=== PATIENT | male | born 1965 | race Two or more races ===

== ENCOUNTER 2021-11-07 14:05 | Emergency (ER) | payer OTHER ==
[~2021-11-07] VITALS: Ht 165.1 cm; Wt 61.2 kg
[2021-11-07 15:15] VITALS: BP 145/82
[2021-11-07] MEDS ORDERED: IBUPROFEN 800 MG TAB PO ONE (15:15)
[2021-11-07] MEDS ORDERED: IBUP800T27 PO (15:18)
== END 2021-11-07 15:21 | disposition home or self-care (01) ==
LOC: ER 14:05
DX: S62.622D Displaced fracture of middle phalanx of right middle finger, subsequent encounter for fracture with routine healing (principal); X58.XXXD Exposure to other specified factors, subsequent encounter
CPT/HCPCS: 29130; 73140

== ENCOUNTER 2022-01-15 09:55 | Emergency (ER) | payer MEDICAID, OTHER ==
[~2022-01-15] VITALS: Ht 170.2 cm; Wt 70.3 kg
[~2022-01-15 09:55] MED LIST: IBUP800T27 PO
[2022-01-15] MEDS ORDERED: FERROUS SULFATE 325mg EC TAB PO ONE (10:15)
[2022-01-15] MEDS ORDERED: THIAMINE 100mg/ml INJ (200mg/2ml VIAL) IV ONE (10:15)
[2022-01-15] MEDS ORDERED: SODIUM CHLORIDE 0.9% 1,000 ML IV ONE ×3 (10:15)
[2022-01-15 10:27] LABS: Red Blood Cells 3.13 10^6/uL (4.5-5.90); White Blood Cell 4.5 10^3/uL (4.4-10.8)
[2022-01-15 10:28] LABS: Hematocrit 22.9 % (41.0-53.0); Hemoglobin 7.3 g/dL (13.5-17.5); Mean Corpuscular Hemoglobin 23.4 pg (28.0-32.0); Mean Corpuscular Volume 73.2 fL (80.0-100.0); Red Cell Distribution Width 18.4 % (11.8-14.3)
[2022-01-15 10:41] LABS: INR 1.26 (0.9-1.15)
[2022-01-15 10:46] LABS: Alanine Aminotransferase 18 U/L (16-61); Albumin 3.5 g/dL (3.4-5.0); Anion Gap 8 (5-15); Blood Alcohol < 3.0 mg/dL (0-5); Blood Urea Nitrogen 10 mg/dL (7-18); Calcium 8.8 mg/dL (8.5-10.1); Carbon Dioxide 23 mmol/L (21-32); Chloride 107 mmol/L (98-107); Glucose 112 mg/dL (74-106); Magnesium 1.7 mg/dL (1.6-2.6); Potassium 3.6 mmol/L (3.5-5.1); Sodium 138 mmol/L (136-145)
[2022-01-15 10:50] LABS: Alkaline Phosphatase 175 U/L (45-117); Aspartate Aminotransferase 31 U/L (15-37); BUN/Creatinine Ratio 9.3; Bilirubin, Total 1.5 mg/dL (0.2-1.0); GFR African American 93 mL/min; GFR Non-African American 77 mL/min; Total Protein 8.1 g/dL (6.4-8.2)
[2022-01-15] MEDS ORDERED: FERR-20 PO (12:34)
[2022-01-15 12:51] VITALS: BP 122/57
== END 2022-01-15 12:56 | disposition home or self-care (01) ==
LOC: ER 09:55
DX: D64.9 Anemia, unspecified (principal); R04.0 Epistaxis; F10.10 Alcohol abuse, uncomplicated; I10 Essential (primary) hypertension; Y90.8 Blood alcohol level of 240 mg/100 ml or more
CPT/HCPCS: 36415; 80053; 80320; 83735; 85025; 85610; 85730; 86850; 86900; 86901; 96361; 96374; 99285; J3411; J7030

== ENCOUNTER 2023-06-03 09:30 | Inpatient (IN) | payer OTHER ==
[~2023-06-03] VITALS: Ht 165.1 cm; Wt 63.3 kg
[~2023-06-03 09:30] MED LIST changes: +FERR325T24 PO; +IBUP-1456 PO; -IBUP800T27 PO
[2023-06-03 10:25] LABS: Basophils # (auto) 0 10 ^3/uL (0-0.2); Basophils % (auto) 0.6 % (0.0-2.0); Eosinophils # (auto) 0.4 10 ^3/uL (0-0.8); Eosinophils % (auto) 8.3 % (0.0-7.0); Hematocrit 29.7 % (41.0-53.0); Lymphocytes # (auto) 1.1 10 ^3/uL (0.4-5.4); Lymphocytes % (auto) 20.3 % (10.0-50.0); Mean Corpuscular Hemoglobin 33.9 pg (28.0-32.0); Mean Corpuscular Hgb Conc. 33.5 g/dL (32.0-36.0); Mean Corpuscular Volume 101.1 fL (80.0-100.0); Monocytes # (auto) 0.4 10 ^3/uL (0-1.3); Monocytes % (auto) 7.4 % (0.0-12.0); Neutrophils # (auto) 3.3 10 ^3/uL (1.6-8.6); Neutrophils % (auto) 63.4 % (37.0-80.0); Nucleated Red Blood Cells % 0.3 %; Red Blood Cells 2.94 10^6/uL (4.5-5.90); Red Cell Distribution Width 16.5 % (11.8-14.3); White Blood Cell 5.3 10^3/uL (4.4-10.8)
[2023-06-03] MEDS ORDERED: SODIUM CHLORIDE 0.9% 1,000 ML IV ONE ×2 (10:30)
[2023-06-03] MEDS ORDERED: THIAMINE 100mg/ml INJ (200mg/2ml VIAL) IV ONE (10:30)
[2023-06-03 11:12] LABS: Alanine Aminotransferase 43 U/L (7-40); Alkaline Phosphatase 475 U/L (46-116); Anion Gap 8.1 (5-15); Aspartate Aminotransferase 111 U/L (13-40); Calcium 7.8 mg/dL (8.7-10.4); Carbon Dioxide 23.9 mmol/L (20-30); Chloride 101 mmol/L (98-107); Glucose 152 mg/dL (74-106); Lipase 51 U/L (12-53); Potassium 3.4 mmol/L (3.5-5.1); Sodium 133 mmol/L (136-145)
[2023-06-03 11:13] LABS: Total Protein 6.4 g/dL (5.7-8.2)
[2023-06-03 12:26] LABS: BUN/Creatinine Ratio 9.1 (10.0-20.0); Blood Urea Nitrogen 8 mg/dL (9-23)
[2023-06-03] MEDS ORDERED: ONDANSETRON HCL 4 MG/2 ML VIAL IV PRN (13:45)
[2023-06-03] MEDS ORDERED: DOCUSATE SOD 100 MG CAP PO PRN (13:45)
[2023-06-03] MEDS ORDERED: MORPHINE SULFATE INJ 2 MG/ml SYRG IV PRN (13:45)
[2023-06-03] MEDS ORDERED: LORazepam 2MG/ML-1ML VIAL IV PRN (13:45)
[2023-06-03 14:38] LABS: INR 1.73 (0.9-1.15); Prothrombin Time 17.5 sec (9.3-11.8)
[2023-06-03 15:01] LABS: Urine Bacteria NONE SEEN /hpf (None Seen); Urine Blood Negative /uL (Negative); Urine Clarity Clear (Clear); Urine Color Yellow (Yellow); Urine Protein, UAD TRACE (Negative); Urine Specific Gravity 1.014 (1.001-1.035); Urine WBC 1 /hpf (0 - 3)
[2023-06-03 15:50] VITALS: PULSE 80; RESP 16; O2SAT 98
[2023-06-03] MEDS: FUROSEMIDE 20 MG/2 ML VIAL IV SCH (18:39)
[2023-06-03 20:33] VITALS: PULSE 100; RESP 20; O2SAT 96
[2023-06-04 05:10] LABS: Basophils # (auto) 0 10 ^3/uL (0-0.2); Eosinophils # (auto) 0.4 10 ^3/uL (0-0.8); Hematocrit 25.8 % (41.0-53.0); Hemoglobin 8.9 g/dL (13.5-17.5); Monocytes # (auto) 0.3 10 ^3/uL (0-1.3); Red Blood Cells 2.57 10^6/uL (4.5-5.90)
[2023-06-04 05:13] LABS: Basophils % (auto) 0.8 % (0.0-2.0); Eosinophils % (auto) 11.4 % (0.0-7.0); Lymphocytes # (auto) 0.9 10 ^3/uL (0.4-5.4); Mean Corpuscular Hemoglobin 34.8 pg (28.0-32.0); Mean Corpuscular Hgb Conc. 34.6 g/dL (32.0-36.0); Mean Corpuscular Volume 100.4 fL (80.0-100.0); Monocytes % (auto) 8.9 % (0.0-12.0); Neutrophils % (auto) 54.9 % (37.0-80.0); Nucleated Red Blood Cells % 0.1 %; Red Cell Distribution Width 16.5 % (11.8-14.3); White Blood Cell 3.7 10^3/uL (4.4-10.8)
[2023-06-04 05:30] LABS: Alanine Aminotransferase 33 U/L (7-40); Albumin 2.6 g/dL (3.2-4.8); Alkaline Phosphatase 376 U/L (46-116); Anion Gap 7.5 (5-15); Aspartate Aminotransferase 84 U/L (13-40); BUN/Creatinine Ratio 6.7 (10.0-20.0); Bilirubin, Total 4.1 mg/dL (0.2-1.0); Blood Urea Nitrogen 5 mg/dL (9-23); Calcium 7.3 mg/dL (8.5-10.1); Carbon Dioxide 24.5 mmol/L (20-30); Chloride 104 mmol/L (98-107); Glucose 97 mg/dL (74-106); Sodium 136 mmol/L (136-145); Total Protein 5.6 g/dL (5.7-8.2)
[2023-06-04 06:21] LABS: Potassium 2.8 mmol/L (3.5-5.1)
[2023-06-04] MEDS ORDERED: POTASSIUM CHL 20 Meq TABLET PO ONE (06:45)
[2023-06-04] MEDS: FUROSEMIDE 20 MG/2 ML VIAL IV SCH ×2 (06:49→17:51)
[2023-06-04 07:56] LABS: Platelet Estimate Decreased
[2023-06-04 07:57] LABS: Macrocytosis Slight
[2023-06-04 09:00] VITALS: PULSE 85; RESP 14; O2SAT 97
[2023-06-04 10:12] VITALS: BP 121/75; PULSE 88; O2SAT 100
[2023-06-04] MEDS: POTASSIUM CHL 20MEQ/100ML 100 ML IV SCH ×2 (10:21→13:54)
[2023-06-04] MEDS: PANTOPRAZOLE 40 MG/10 ML VIAL INJ IV SCH (10:21)
[2023-06-04] MEDS ORDERED: FOLIC ACID 1 MG, MULTIPLE VITAMIN 10 ML, MAGNESIUM SULF SDV 50% 8 MEQ, THIAMINE INJ 100... INJ ONE ×5 (10:30)
[2023-06-04] MEDS ORDERED: FOLIC ACID 1 MG, MULTIPLE VITAMIN 10 ML, MAGNESIUM SULF SDV 50% 8 MEQ, THIAMINE INJ 100... INJ SCH ×5 (12:00)
[2023-06-04 12:30] VITALS: BP 117/65; PULSE 82; RESP 18; TEMP 98.3; O2SAT 100
[2023-06-04] MEDS ORDERED: LACTULOSE 20Gm/30ML SOLN PO PRN (13:15)
[2023-06-04 13:31] LABS: Chloride 102 mmol/L (98-107); Sodium 135 mmol/L (136-145)
[2023-06-04 13:32] LABS: Anion Gap 7.4 (5-15); Carbon Dioxide 25.6 mmol/L (20-30)
[2023-06-04 13:33] LABS: Calcium 7.5 mg/dL (8.5-10.1)
[2023-06-04 13:37] LABS: Glucose 116 mg/dL (74-106)
[2023-06-04 13:38] LABS: BUN/Creatinine Ratio 9.3 (10.0-20.0); Blood Urea Nitrogen 7 mg/dL (9-23)
[2023-06-04 13:45] LABS: Potassium 2.8 mmol/L (3.5-5.1)
[2023-06-04] MEDS ORDERED: POTASSIUM CHL 20MEQ/100ML 100 ML IV SCH (14:00)
[2023-06-04 17:01] VITALS: BP 121/85; PULSE 89; RESP 17; TEMP 99.3; O2SAT 98
[2023-06-04] MEDS ORDERED: POTASSIUM EFFERVESENT TAB 25 MEQ PO ONE (17:15)
[2023-06-04 19:27] LABS: Alanine Aminotransferase 39 U/L (7-40); Alkaline Phosphatase 435 U/L (46-116); Anion Gap 7.7 (5-15); Aspartate Aminotransferase 94 U/L (13-40); BUN/Creatinine Ratio 7.1 (10.0-20.0); Bilirubin, Total 4.4 mg/dL (0.2-1.0); Blood Urea Nitrogen 6 mg/dL (9-23); Calcium 7.7 mg/dL (8.5-10.1); Carbon Dioxide 25.3 mmol/L (20-30); Chloride 103 mmol/L (98-107); Glucose 99 mg/dL (74-106); Potassium 3.2 mmol/L (3.5-5.1); Sodium 136 mmol/L (136-145); Total Protein 6.6 g/dL (5.7-8.2)
[2023-06-04 20:00] VITALS: PULSE 100; RESP 18; O2SAT 0
[2023-06-04 22:00] VITALS: BP 110/67; PULSE 101; RESP 18; TEMP 98.3; O2SAT 98
[2023-06-05 05:00] VITALS: BP 103/64; PULSE 90; RESP 18; TEMP 98.4; O2SAT 98
[2023-06-05] MEDS: FUROSEMIDE 20 MG/2 ML VIAL IV SCH (05:27)
[2023-06-05 06:52] LABS: Basophils # (auto) 0 10 ^3/uL (0-0.2); Eosinophils # (auto) 0.5 10 ^3/uL (0-0.8); Hemoglobin 9.6 g/dL (13.5-17.5); Lymphocytes # (auto) 1.5 10 ^3/uL (0.4-5.4); Mean Corpuscular Volume 101.8 fL (80.0-100.0); Monocytes # (auto) 0.4 10 ^3/uL (0-1.3); Neutrophils # (auto) 2.7 10 ^3/uL (1.6-8.6); Red Cell Distribution Width 16.6 % (11.8-14.3); White Blood Cell 5.1 10^3/uL (4.4-10.8)
[2023-06-05 06:56] LABS: Basophils % (auto) 0.6 % (0.0-2.0); Eosinophils % (auto) 9.6 % (0.0-7.0); Hematocrit 27.5 % (41.0-53.0); Lymphocytes % (auto) 29.9 % (10.0-50.0); Mean Corpuscular Hemoglobin 35.6 pg (28.0-32.0); Monocytes % (auto) 7.5 % (0.0-12.0); Neutrophils % (auto) 52.4 % (37.0-80.0); Nucleated Red Blood Cells % 0.4 %
[2023-06-05 07:03] LABS: Alanine Aminotransferase 31 U/L (7-40); Albumin 2.8 g/dL (3.2-4.8); Alkaline Phosphatase 398 U/L (46-116); Anion Gap 8.5 (5-15); Aspartate Aminotransferase 77 U/L (13-40); BUN/Creatinine Ratio 6.7 (10.0-20.0); Blood Urea Nitrogen 6 mg/dL (9-23); Calcium 7.6 mg/dL (8.7-10.4); Carbon Dioxide 25.5 mmol/L (20-30); Chloride 102 mmol/L (98-107); Glucose 110 mg/dL (74-106); Potassium 3.2 mmol/L (3.5-5.1); Sodium 136 mmol/L (136-145)
[2023-06-05 07:04] LABS: Bilirubin, Total 4.3 mg/dL (0.2-1.0); Total Protein 6.1 g/dL (5.7-8.2)
[2023-06-05 07:30] VITALS: BP 103/64; TEMP 36.9
[2023-06-05 08:00] VITALS: PULSE 91; RESP 17; O2SAT 99
[2023-06-05 09:00] VITALS: BP 109/65; PULSE 91; RESP 17; TEMP 98.6; O2SAT 99
[2023-06-05] MEDS: PANTOPRAZOLE 40 MG/10 ML VIAL INJ IV SCH (09:03)
[2023-06-05] MEDS ORDERED: SPIRONOLACTONE 25 MG TAB PO SCH (10:00)
[2023-06-05] MEDS ORDERED: LACT10SO3 PO (11:25)
[2023-06-05] MEDS ORDERED: FURO1TAB33 PO (11:25)
[2023-06-05] MEDS ORDERED: SPIR25TA PO (11:25)
[2023-06-05] MEDS ORDERED: POTASSIUM CHL 20 Meq TABLET PO ONE (11:45)
[2023-06-05] MEDS ORDERED: FOLIC ACID 1 MG, MULTIPLE VITAMIN 10 ML, MAGNESIUM SULF SDV 50% 8 MEQ, THIAMINE INJ 100... INJ SCH ×5 (12:00)
[2023-06-05 13:00] VITALS: BP 135/63; PULSE 91; RESP 17; TEMP 97.7; O2SAT 98
[2023-06-05 13:26] VITALS: BP 103/64; TEMP 37
[2023-06-07 10:58] LABS: Hepatitis B Surface Antibody Positive (Negative)
[2023-06-07 11:04] LABS: Hepatitis B Surface Antigen Negative (Negative)
[2023-06-07 11:10] LABS: Hepatitis B Surface Antigen Negative (Negative)
[2023-06-07 11:24] LABS: Hepatitis A Ab IgM Negative
[2023-06-07 11:25] LABS: Hepatitis B Core IgM Negative; Hepatitis C Antibody Negative (Negative)
[2023-06-07 13:10] LABS: Hepatitis A Total Antibody Positive (Negative); Hepatitis C Antibody Negative (Negative)
[2023-06-10 15:32] LABS: Hepatitis B Core Total AB Negative (Negative)
== END 2023-06-05 15:00 | disposition home or self-care (01) | DRG 280 ==
LOC: ER 09:30 → OVERFLOW 13:51 → WEST WING 06-04 10:01
PROVIDERS: ADMIT Internal Medicine Pulmonary Disease; ATTEND Internal Medicine
DX: K70.31 Alcoholic cirrhosis of liver with ascites (principal); D69.6 Thrombocytopenia, unspecified; E72.20 Disorder of urea cycle metabolism, unspecified; D63.8 Anemia in other chronic diseases classified elsewhere; F10.10 Alcohol abuse, uncomplicated; I10 Essential (primary) hypertension; R16.1 Splenomegaly, not elsewhere classified
CPT/HCPCS: 36415; 74176; 76705; 80048; 80053; 80074; 80320; 81001; 82140; 82607; 83690; 83735; 84425; 84484; 85025; 85610; 86704; 86706; 86708; 86803; 87340; 96361; 96374; C9113; G0378; J3480

== ENCOUNTER 2023-07-26 10:58 | Inpatient (IN) | payer OTHER ==
[~2023-07-26] VITALS: Ht 165.1 cm; Wt 64.7 kg
[~2023-07-26 10:58] MED LIST changes: +FURO1TAB33 PO; +LACT10SO3 PO; +SPIR25TA PO
[2023-07-26 11:44] LABS: Red Cell Distribution Width 17.5 % (11.8-14.3); White Blood Cell 3.4 10^3/uL (4.4-10.8)
[2023-07-26 11:45] LABS: Hematocrit 23.8 % (41.0-53.0); Hemoglobin 8.1 g/dL (13.5-17.5); Mean Corpuscular Hemoglobin 34.2 pg (28.0-32.0); Mean Corpuscular Hgb Conc. 33.9 g/dL (32.0-36.0); Mean Corpuscular Volume 100.9 fL (80.0-100.0); Red Blood Cells 2.36 10^6/uL (4.5-5.90)
[2023-07-26 12:08] LABS: Alanine Aminotransferase 45 U/L (7-40); Albumin 2.8 g/dL (3.2-4.8); Alkaline Phosphatase 247 U/L (46-116); Anion Gap 7 (5-15); Aspartate Aminotransferase 79 U/L (13-40); BUN/Creatinine Ratio 12.4 (10.0-20.0); Blood Urea Nitrogen 11 mg/dL (9-23); Carbon Dioxide 21 mmol/L (20-30); Chloride 107 mmol/L (98-107); Glucose 126 mg/dL (74-106); Potassium 3.4 mmol/L (3.5-5.1); Sodium 135 mmol/L (136-145)
[2023-07-26 12:09] LABS: Bilirubin, Total 1.7 mg/dL (0.2-1.0); Total Protein 5.7 g/dL (5.7-8.2)
[2023-07-26 12:19] LABS: Band Neutrophils % (manual) 0; Basophils % (manual) 0 (0.0-2.0); Blast Cells 0; Metamyelocytes % 0; Myelocytes % 0; Promyelocytes % 0; Reactive Lymphocytes 0
[2023-07-26 15:15] LABS: Eosinophils % (manual) 23 (0-7); Lymphocytes % (manual) 35 (10.0-50.0); Monocytes % (manual) 6 (0-12); Platelet Estimate Decreased
[2023-07-26 15:49] LABS: Urine Bacteria NONE SEEN /hpf (None Seen); Urine Blood Negative /uL (Negative); Urine Clarity Clear (Clear); Urine Color Yellow (Yellow); Urine Protein, UAD Negative (Negative); Urine Specific Gravity 1.021 (1.001-1.035); Urine Urobilinogen >12.0 mg/dL (Negative); Urine WBC 1 /hpf (0 - 3); Urine pH 6.5 (5.0-8.0)
[2023-07-26] MEDS ORDERED: ONDANSETRON HCL 4 MG/2 ML VIAL IV PRN (20:30)
[2023-07-26] MEDS ORDERED: TEMAZEPAM 15 MG CAP PO PRN (20:30)
[2023-07-26 22:03] LABS: INR 1.43 (0.9-1.15); Partial Thromboplastin Time 34.2 SEC (24.5-34.5); Prothrombin Time 14.7 sec (9.3-11.8)
[2023-07-26 23:45] VITALS: BP 140/73; PULSE 74; RESP 18; TEMP 97.7; O2SAT 100
[2023-07-27 05:00] VITALS: BP 101/59; PULSE 78; RESP 18; TEMP 97.8; O2SAT 100
[2023-07-27 05:46] LABS: Hemoglobin 8.1 g/dL (13.5-17.5); White Blood Cell 3.1 10^3/uL (4.4-10.8)
[2023-07-27 05:52] LABS: Hematocrit 23.4 % (41.0-53.0); Mean Corpuscular Hemoglobin 34.6 pg (28.0-32.0); Mean Corpuscular Hgb Conc. 34.6 g/dL (32.0-36.0); Mean Corpuscular Volume 99.8 fL (80.0-100.0); Red Blood Cells 2.34 10^6/uL (4.5-5.90); Red Cell Distribution Width 17.4 % (11.8-14.3)
[2023-07-27 06:07] LABS: Alanine Aminotransferase 45 U/L (7-40); Alkaline Phosphatase 171 U/L (46-116); Anion Gap 7 (5-15); BUN/Creatinine Ratio 12.4 (10.0-20.0); Blood Urea Nitrogen 12 mg/dL (9-23); Calcium 8.2 mg/dL (8.7-10.4); Carbon Dioxide 22 mmol/L (20-30); Chloride 109 mmol/L (98-107); Glucose 106 mg/dL (74-106); Potassium 3.3 mmol/L (3.5-5.1); Sodium 138 mmol/L (136-145)
[2023-07-27 06:08] LABS: Albumin 2.6 g/dL (3.2-4.8); Aspartate Aminotransferase 76 U/L (13-40); Bilirubin, Total 1.8 mg/dL (0.2-1.0); Total Protein 5.4 g/dL (5.7-8.2)
[2023-07-27 06:45] LABS: Band Neutrophils % (manual) 0; Basophils % (manual) 0 (0.0-2.0); Blast Cells 0; Metamyelocytes % 0; Myelocytes % 0; Promyelocytes % 0; Reactive Lymphocytes 0
[2023-07-27] MEDS: FERROUS SULFATE 325mg EC TAB PO SCH ×2 (08:00→18:37)
[2023-07-27 08:32] LABS: Eosinophils % (manual) 20 (0-7); Lymphocytes % (manual) 23 (10.0-50.0); Monocytes % (manual) 6 (0-12); Platelet Estimate Decreased
[2023-07-27 09:00] VITALS: BP 104/59; PULSE 77; RESP 20; TEMP 98; O2SAT 98
[2023-07-27] MEDS ORDERED: LACTULOSE 20Gm/30ML SOLN PO SCH (10:00)
[2023-07-27] MEDS: SPIRONOLACTONE 25 MG TAB PO SCH (10:16)
[2023-07-27] MEDS: PANTOPRAZOLE 40 MG TAB PO SCH (10:16)
[2023-07-27] MEDS: FUROSEMIDE 20 MG TAB PO SCH (10:17)
[2023-07-27 13:00] VITALS: BP 101/59; PULSE 79; RESP 20; TEMP 98.3; O2SAT 98
[2023-07-27] MEDS: LACTULOSE 20Gm/30ML SOLN PO SCH ×3 (15:25→22:05)
[2023-07-27 17:12] VITALS: BP 100/64; PULSE 82; RESP 20; TEMP 98; O2SAT 99
[2023-07-27 22:00] VITALS: BP 100/63; PULSE 78; RESP 18; TEMP 98.6; O2SAT 100
[2023-07-28 04:52] VITALS: BP 103/61; PULSE 80; RESP 20; TEMP 98.3; O2SAT 99
[2023-07-28] MEDS: LACTULOSE 20Gm/30ML SOLN PO SCH ×2 (06:26→13:13)
[2023-07-28] MEDS: FERROUS SULFATE 325mg EC TAB PO SCH (06:26)
[2023-07-28 09:00] VITALS: BP 96/55; PULSE 57; RESP 17; TEMP 97.9; O2SAT 98
[2023-07-28] MEDS ORDERED: LACT10PA2 PO (09:14)
[2023-07-28] MEDS: FUROSEMIDE 20 MG TAB PO SCH (09:27)
[2023-07-28] MEDS: PANTOPRAZOLE 40 MG TAB PO SCH (09:28)
[2023-07-28] MEDS: SPIRONOLACTONE 25 MG TAB PO SCH (09:28)
== END 2023-07-28 14:15 | disposition home or self-care (01) | DRG 280 ==
LOC: ER 10:58 → OVERFLOW 20:23 → CENTRAL 23:38
PROVIDERS: ADMIT Nurse Practitioner; ATTEND Family Medicine
DX: K70.31 Alcoholic cirrhosis of liver with ascites (principal); D61.818 Other pancytopenia; E72.20 Disorder of urea cycle metabolism, unspecified; K76.82 Hepatic encephalopathy; F10.10 Alcohol abuse, uncomplicated; I10 Essential (primary) hypertension; R16.1 Splenomegaly, not elsewhere classified; R74.01 Elevation of levels of liver transaminase levels; Z91.148 Patient's other noncompliance with medication regimen for other reason
CPT/HCPCS: 36415; 76705; 80053; 81001; 82140; 85007; 85027; 85610; 85730; 87081; 93005; G0378

== ENCOUNTER 2024-01-16 15:18 | Inpatient (IN) | payer OTHER ==
[~2024-01-16] VITALS: Ht 165.1 cm; Wt 68.6 kg
[~2024-01-16 15:18] MED LIST changes: +LACT10PA2 PO
[2024-01-16 16:50] LABS: Hematocrit 20.9 % (41.0-53.0); Mean Corpuscular Hgb Conc. 33.4 g/dL (32.0-36.0); Mean Corpuscular Volume 98.7 fL (80.0-100.0); Red Blood Cells 2.11 10^6/uL (4.5-5.90); White Blood Cell 4.7 10^3/uL (4.4-10.8)
[2024-01-16 16:53] LABS: Basophils % (manual) 0 (0.0-2.0); Blast Cells 0; Metamyelocytes % 0; Myelocytes % 0; Promyelocytes % 0; Reactive Lymphocytes 0
[2024-01-16 17:01] LABS: Alanine Aminotransferase 64 U/L (7-40); Albumin 3.2 g/dL (3.2-4.8); Alkaline Phosphatase 230 U/L (46-116); Anion Gap 6 (5-15); Aspartate Aminotransferase 89 U/L (13-40); BUN/Creatinine Ratio 15.9 (10.0-20.0); Bilirubin, Total 1.4 mg/dL (0.2-1.0); Blood Alcohol < 3.0 mg/dL (<10); Blood Urea Nitrogen 18 mg/dL (9-23); Calcium 8.4 mg/dL (8.5-10.1); Carbon Dioxide 21 mmol/L (20-30); Chloride 113 mmol/L (98-107); Glucose 120 mg/dL (74-106); Potassium 4.2 mmol/L (3.5-5.1); Sodium 140 mmol/L (136-145); Total Protein 5.7 g/dL (5.7-8.2)
[2024-01-16 17:27] LABS: Anisocytosis Slight; Band Neutrophils % (manual) 1; Eosinophils % (manual) 28 (0-7); Lymphocytes % (manual) 4 (10.0-50.0); Macrocytosis Slight; Monocytes % (manual) 14 (0-12)
[2024-01-16 17:28] LABS: Platelet Estimate Decreased
[2024-01-16 17:58] VITALS: PULSE 74; RESP 12; O2SAT 99
[2024-01-16 18:21] LABS: Lipase 69 U/L (12-53)
[2024-01-16 18:37] LABS: Blood Alcohol < 3.0 mg/dL (<10)
[2024-01-16 19:25] VITALS: PULSE 74; RESP 20; O2SAT 99
[2024-01-16 20:09] LABS: Urine Bacteria None Seen /hpf (None Seen)
[2024-01-16] MEDS: LACTULOSE 20Gm/30ML SOLN ONE (20:12)
[2024-01-16 20:19] LABS: Urine Blood Negative /uL (Negative); Urine Clarity Clear (Clear); Urine Color Light-Yellow (Yellow); Urine Protein, UAD Negative (Negative); Urine Specific Gravity 1.012 (1.001-1.035); Urine Urobilinogen 2 mg/dL (Negative); Urine WBC <1 /hpf (0 - 3)
[2024-01-16] MEDS: LACTULOSE 20Gm/30ML SOLN PO ONE (20:23)
[2024-01-16 20:26] LABS: Amphetamine Screen, Urine Neg (NEGATIVE); Barbiturate Scree,Urine Neg (NEGATIVE); Benzodiazephine Screen, Urine Neg (NEGATIVE); Cannabinoid Screen, Urine Neg (NEGATIVE); Cocaine Screen, Urine Neg (NEGATIVE); Opiate Scree,Urine Neg (NEGATIVE); Phencyclidine Screen, Urine Neg (NEGATIVE)
[2024-01-16] MEDS: GABAPENTIN 300 MG CAP ONE (21:15)
[2024-01-16] MEDS: PROPRANOLOL HCL 20 MG TAB ONE (21:15)
[2024-01-16] MEDS: PROPRANOLOL HCL 20 MG TAB PO SCH (21:19)
[2024-01-16] MEDS: GABAPENTIN 300 MG CAP PO SCH (21:20)
[2024-01-17] VITALS (8 sets, daily range): BP systolic 100–113; BP diastolic 41–69; PULSE 64–77; RESP 16–20; TEMP 36.8; O2SAT 96–100
[2024-01-17 05:59] LABS: Hematocrit 19.1 % (41.0-53.0); Mean Corpuscular Hemoglobin 33.2 pg (28.0-32.0); Mean Corpuscular Hgb Conc. 33.2 g/dL (32.0-36.0); Red Blood Cells 1.91 10^6/uL (4.5-5.90); White Blood Cell 3.2 10^3/uL (4.4-10.8)
[2024-01-17 06:01] LABS: Mean Corpuscular Volume 100.2 fL (80.0-100.0); Red Cell Distribution Width 18.2 % (11.8-14.3)
[2024-01-17 06:12] LABS: Hemoglobin 6.3 g/dL (13.5-17.5)
[2024-01-17 06:14] LABS: Basophils % (manual) 0 (0.0-2.0); Blast Cells 0; Metamyelocytes % 0; Myelocytes % 0; Promyelocytes % 0; Reactive Lymphocytes 0
[2024-01-17 06:28] LABS: Alanine Aminotransferase 53 U/L (7-40); Albumin 2.9 g/dL (3.2-4.8); Alkaline Phosphatase 167 U/L (46-116); Anion Gap 8 (5-15); Aspartate Aminotransferase 84 U/L (13-40); BUN/Creatinine Ratio 15.4 (10.0-20.0); Bilirubin, Total 1.4 mg/dL (0.2-1.0); Blood Urea Nitrogen 16 mg/dL (9-23); Calcium 8.8 mg/dL (8.5-10.1); Carbon Dioxide 20 mmol/L (20-30); Chloride 113 mmol/L (98-107); Glucose 99 mg/dL (74-106); Potassium 4.1 mmol/L (3.5-5.1); Sodium 141 mmol/L (136-145); Total Protein 5.1 g/dL (5.7-8.2)
[2024-01-17 07:43] LABS: Band Neutrophils % (manual) 2; Eosinophils % (manual) 20 (0-7); Lymphocytes % (manual) 25 (10.0-50.0); Monocytes % (manual) 6 (0-12)
[2024-01-17 07:44] LABS: Platelet Estimate Adequate
[2024-01-17] MEDS: FUROSEMIDE 20 MG TAB PO SCH (10:00)
[2024-01-17] MEDS: SPIRONOLACTONE 25 MG TAB PO SCH (10:00)
[2024-01-17] MEDS: LACTULOSE 20Gm/30ML SOLN PO SCH (11:09)
[2024-01-17] MEDS: ONDANSETRON HCL 4 MG/2 ML VIAL IV PRN (11:09)
[2024-01-17] MEDS: GABAPENTIN 300 MG CAP ONE (11:18)
[2024-01-17] MEDS ORDERED: MULT-1018 PO (13:43)
[2024-01-17] MEDS ORDERED: SPIR25TA8 PO (13:43)
[2024-01-17] MEDS ORDERED: FAMO-12 PO (13:43)
[2024-01-17] MEDS ORDERED: FERR325T24 PO (13:43)
[2024-01-17] MEDS ORDERED: FURO20TA3 PO (13:43)
[2024-01-17] MEDS ORDERED: GABA-1250 PO (13:43)
[2024-01-17] MEDS ORDERED: PROP1TAB53 PO (13:43)
[2024-01-17] MEDS ORDERED: FAMO40TA7 PO (14:02)
[2024-01-17] MEDS: PANTOPRAZOLE 40 MG/10 ML VIAL INJ IV ONE (17:00)
[2024-01-17] MEDS: PANTOPRAZOLE 40 MG/10 ML VIAL INJ IV SCH (21:48)
[2024-01-18] VITALS (8 sets, daily range): BP systolic 1–113; BP diastolic 54–69; PULSE 65–80; RESP 16–20; TEMP 96.8–98.7; O2SAT 96–100
[2024-01-18 07:06] LABS: Chloride 115 mmol/L (98-107); Potassium 4.5 mmol/L (3.5-5.1); Sodium 138 mmol/L (136-145)
[2024-01-18 07:07] LABS: Anion Gap 4 (5-15); Carbon Dioxide 19 mmol/L (20-30)
[2024-01-18 07:08] LABS: Calcium 8.4 mg/dL (8.5-10.1)
[2024-01-18 07:12] LABS: Glucose 108 mg/dL (74-106)
[2024-01-18 07:13] LABS: BUN/Creatinine Ratio 11.4 (10.0-20.0); Blood Urea Nitrogen 14 mg/dL (9-23)
[2024-01-18 07:18] LABS: Hemoglobin 7.4 g/dL (13.5-17.5); Mean Corpuscular Hemoglobin 32.9 pg (28.0-32.0); Mean Corpuscular Volume 98.7 fL (80.0-100.0); Red Cell Distribution Width 19.7 % (11.8-14.3); White Blood Cell 3.7 10^3/uL (4.4-10.8)
[2024-01-18 07:21] LABS: Hematocrit 22.1 % (41.0-53.0); Mean Corpuscular Hgb Conc. 33.4 g/dL (32.0-36.0); Red Blood Cells 2.24 10^6/uL (4.5-5.90)
[2024-01-18 07:24] LABS: Basophils % (manual) 0 (0.0-2.0); Blast Cells 0; Metamyelocytes % 0; Myelocytes % 0; Promyelocytes % 0; Reactive Lymphocytes 0
[2024-01-18 07:43] LABS: Band Neutrophils % (manual) 1; Lymphocytes % (manual) 16 (10.0-50.0); Monocytes % (manual) 7 (0-12)
[2024-01-18 07:44] LABS: Eosinophils % (manual) 28 (0-7)
[2024-01-18 07:45] LABS: Platelet Estimate Decreased
[2024-01-18 07:46] LABS: RBC Morphology Normal
[2024-01-19] VITALS (9 sets, daily range): BP systolic 104–120; BP diastolic 54–83; PULSE 63–78; RESP 12–18; TEMP 97.3–98.5; O2SAT 95–100
[2024-01-19 06:35] LABS: Basophils # (auto) 0 10 ^3/uL (0-0.2); Basophils % (auto) 0.3 % (0.0-2.0); Eosinophils # (auto) 0.6 10 ^3/uL (0-0.8); Hemoglobin 7.3 g/dL (13.5-17.5); Mean Corpuscular Hgb Conc. 33.1 g/dL (32.0-36.0); Monocytes # (auto) 0.3 10 ^3/uL (0-1.3); Neutrophils # (auto) 1.5 10 ^3/uL (1.6-8.6); Red Cell Distribution Width 19.2 % (11.8-14.3); White Blood Cell 3.2 10^3/uL (4.4-10.8)
[2024-01-19 06:37] LABS: Hematocrit 22.1 % (41.0-53.0); Lymphocytes # (auto) 0.8 10 ^3/uL (0.4-5.4); Lymphocytes % (auto) 23.6 % (10.0-50.0); Mean Corpuscular Hemoglobin 32.5 pg (28.0-32.0); Mean Corpuscular Volume 98.3 fL (80.0-100.0); Monocytes % (auto) 9.4 % (0.0-12.0); Neutrophils % (auto) 46.4 % (37.0-80.0); Red Blood Cells 2.24 10^6/uL (4.5-5.90)
[2024-01-19 06:44] LABS: Anion Gap 6 (5-15); Carbon Dioxide 19 mmol/L (20-30); Chloride 113 mmol/L (98-107); Potassium 4.1 mmol/L (3.5-5.1); Sodium 138 mmol/L (136-145)
[2024-01-19 06:45] LABS: INR 1.37 (0.9-1.15); Prothrombin Time 14.1 sec (9.3-11.8)
[2024-01-19 06:46] LABS: Calcium 8.4 mg/dL (8.5-10.1)
[2024-01-19 06:50] LABS: BUN/Creatinine Ratio 10.6 (10.0-20.0); Blood Urea Nitrogen 12 mg/dL (9-23); Glucose 111 mg/dL (74-106)
[2024-01-19 07:07] LABS: Eosinophils % (auto) 20.3 % (0.0-7.0)
[2024-01-19] MEDS: LACTULOSE 20Gm/30ML SOLN PO SCH ×2 (08:00→10:40)
[2024-01-19] MEDS ORDERED: MIDAZOLAM HCL 2MG/2ML 2ml VIAL (1mg/ml) ONE (09:28)
[2024-01-19] MEDS ORDERED: KETAMINE 50mg/ML 1ml syringe ONE (09:28)
[2024-01-19] MEDS ORDERED: ONDANSETRON HCL 4 MG/2 ML VIAL ONE (09:43)
[2024-01-19] MEDS ORDERED: ONDANSETRON HCL 4 MG/2 ML VIAL IV ONE (10:00)
[2024-01-19] MEDS: SUCRALFATE 1 GM/10 ML ORAL SUSP PO SCH (10:40)
[2024-01-19] MEDS ORDERED: LACTULOSE 20Gm/30ML SOLN PO SCH (14:00)
[2024-01-20 01:00] VITALS: BP 113/62; PULSE 69; RESP 17; TEMP 98.1; O2SAT 100
[2024-01-20 05:00] VITALS: BP 98/55; PULSE 72; RESP 17; TEMP 97.9; O2SAT 98
[2024-01-20 07:03] LABS: Hemoglobin 7.9 g/dL (13.5-17.5); Red Cell Distribution Width 18.7 % (11.8-14.3); White Blood Cell 3.3 10^3/uL (4.4-10.8)
[2024-01-20 07:05] LABS: Mean Corpuscular Hemoglobin 32.3 pg (28.0-32.0); Mean Corpuscular Hgb Conc. 33.1 g/dL (32.0-36.0); Mean Corpuscular Volume 97.3 fL (80.0-100.0); Red Blood Cells 2.46 10^6/uL (4.5-5.90)
[2024-01-20 07:08] LABS: Calcium 8.8 mg/dL (8.7-10.4); Chloride 110 mmol/L (98-107); Potassium 4.1 mmol/L (3.5-5.1); Sodium 137 mmol/L (136-145)
[2024-01-20 07:09] LABS: Anion Gap 9 (5-15); Carbon Dioxide 18 mmol/L (20-30)
[2024-01-20 07:14] LABS: BUN/Creatinine Ratio 12.4 (10.0-20.0); Blood Urea Nitrogen 13 mg/dL (9-23); Glucose 98 mg/dL (74-106)
[2024-01-20 07:19] LABS: Band Neutrophils % (manual) 0; Basophils % (manual) 0 (0.0-2.0); Blast Cells 0; Metamyelocytes % 0; Myelocytes % 0; Promyelocytes % 0; Reactive Lymphocytes 0
[2024-01-20 08:00] VITALS: PULSE 63
[2024-01-20 08:10] LABS: Eosinophils % (manual) 16 (0-7); Lymphocytes % (manual) 23 (10.0-50.0); Monocytes % (manual) 6 (0-12); Platelet Estimate Decreased
[2024-01-20 09:00] VITALS: BP 102/48; PULSE 71; RESP 14; TEMP 98.2; O2SAT 97
[2024-01-20 09:13] LABS: Hepatitis B Surface Antigen Negative (Negative)
[2024-01-20 09:35] LABS: Hepatitis C Antibody Negative (Negative)
[2024-01-20] MEDS ORDERED: PANT40TA2 PO (11:55)
[2024-01-20 12:49] VITALS: BP 102/48; PULSE 71
== END 2024-01-20 13:45 | disposition home or self-care (01) ==
LOC: ER 15:18 → OVERFLOW 21:04 → CENTRAL 01-17 13:45 → TELE-CENTR 01-17 14:54
PROVIDERS: ADMIT Nurse Practitioner; ATTEND Internal Medicine Pulmonary Disease
PROC: 30233N1 Transfusion of Nonautologous Red Blood Cells into Peripheral Vein, Percutaneous Approach (ICD-10-PCS; principal; 2024-01-17)
PROC: 0DB98ZX Excision of Duodenum, Via Natural or Artificial Opening Endoscopic, Diagnostic (ICD-10-PCS; 2024-01-19)
PROC: 0DB68ZX Excision of Stomach, Via Natural or Artificial Opening Endoscopic, Diagnostic (ICD-10-PCS; 2024-01-19)
DX: K76.82 Hepatic encephalopathy (principal); D61.818 Other pancytopenia; G93.41 Metabolic encephalopathy; E72.20 Disorder of urea cycle metabolism, unspecified; I85.00 Esophageal varices without bleeding; D62 Acute posthemorrhagic anemia; K74.60 Unspecified cirrhosis of liver; K29.70 Gastritis, unspecified, without bleeding; K25.9 Gastric ulcer, unspecified as acute or chronic, without hemorrhage or perforation; F10.10 Alcohol abuse, uncomplicated; I10 Essential (primary) hypertension; K44.9 Diaphragmatic hernia without obstruction or gangrene; Z82.49 Family history of ischemic heart disease and other diseases of the circulatory system; Y90.9 Presence of alcohol in blood, level not specified; Z68.25 Body mass index [BMI] 25.0-25.9, adult
CPT/HCPCS: 36415; 70450; 71045; 74176; 80048; 80053; 80307; 80320; 81001; 82140; 82962; 83605; 83690; 83880; 84484; 85007; 85025; 85027; 85610; 86803; 86850; 86900; 86901; 86920; 87040; 87340; 93005; 99291; C9113; G0378; J2250; J2405

== ENCOUNTER 2024-02-18 16:54 | Inpatient (IN) | payer OTHER ==
[~2024-02-18] VITALS: Ht 165.1 cm; Wt 68.0 kg
[~2024-02-18 16:54] MED LIST changes: +FAMO40TA7 PO; -FURO1TAB33 PO; +FURO20TA3 PO; +GABA-1250 PO; -IBUP-1456 PO; -LACT10PA2 PO; -LACT10SO3 PO; +MULT-1018 PO; +PANT40TA2 PO; +PROP1TAB53 PO; -SPIR25TA PO; +SPIR25TA8 PO
[2024-02-18 18:50] VITALS: PULSE 73; RESP 11; O2SAT 99
[2024-02-18 19:18] LABS: Basophils # (auto) 0 10 ^3/uL (0-0.2); Eosinophils # (auto) 0.5 10 ^3/uL (0-0.8); Hemoglobin 7.7 g/dL (13.5-17.5); Lymphocytes # (auto) 1.3 10 ^3/uL (0.4-5.4); White Blood Cell 4.9 10^3/uL (4.4-10.8)
[2024-02-18 19:20] LABS: Basophils % (auto) 0.4 % (0.0-2.0); Eosinophils % (auto) 9.3 % (0.0-7.0); Hematocrit 23.3 % (41.0-53.0); Mean Corpuscular Hemoglobin 32.1 pg (28.0-32.0); Mean Corpuscular Hgb Conc. 32.9 g/dL (32.0-36.0); Mean Corpuscular Volume 97.3 fL (80.0-100.0); Monocytes # (auto) 0.7 10 ^3/uL (0-1.3); Monocytes % (auto) 14.2 % (0.0-12.0); Neutrophils # (auto) 2.5 10 ^3/uL (1.6-8.6); Neutrophils % (auto) 50.1 % (37.0-80.0); Nucleated Red Blood Cells % 0.2 %; Red Blood Cells 2.39 10^6/uL (4.5-5.90); Red Cell Distribution Width 18.5 % (11.8-14.3)
[2024-02-18 19:30] VITALS: PULSE 74; RESP 16; O2SAT 98
[2024-02-18 19:31] LABS: Alanine Aminotransferase 63 U/L (7-40); Albumin 3.5 g/dL (3.2-4.8); Alkaline Phosphatase 186 U/L (46-116); Anion Gap 10 (5-15); Aspartate Aminotransferase 73 U/L (13-40); BUN/Creatinine Ratio 23.3 (10.0-20.0); Bilirubin, Total 2.2 mg/dL (0.2-1.0); Blood Alcohol < 3.0 mg/dL (<10); Blood Urea Nitrogen 34 mg/dL (9-23); Calcium 8.8 mg/dL (8.5-10.1); Carbon Dioxide 19 mmol/L (20-30); Chloride 110 mmol/L (98-107); Glucose 112 mg/dL (74-106); Magnesium 1.7 mg/dL (1.6-2.6); Sodium 139 mmol/L (136-145); Total Protein 6.1 g/dL (5.7-8.2)
[2024-02-18 19:34] LABS: INR 1.39 (0.9-1.15); Partial Thromboplastin Time 30.8 SEC (24.5-34.5); Prothrombin Time 14.4 sec (9.3-11.8)
[2024-02-18 20:00] LABS: Acetaminophen < 2.0 UG/ML (10.0-20.0); Salicylate < 3.0 mg/dL (2.8-20.0)
[2024-02-18] MEDS: LACTULOSE 20Gm/30ML SOLN PO ONE (20:14)
[2024-02-18] MEDS ORDERED: IBUPROFEN 600 MG TAB PO PRN (21:45)
[2024-02-18] MEDS ORDERED: ONDANSETRON HCL 4 MG/2 ML VIAL IV PRN (21:45)
[2024-02-18] MEDS ORDERED: DOCUSATE SOD 100 MG CAP PO PRN (21:45)
[2024-02-18] MEDS ORDERED: HYDROcodone-ACET 5/325MG TAB PO PRN (21:45)
[2024-02-18] MEDS: SODIUM CHLOR 0.9% PF (SALINE LOCK) 10ML VIAL/SYR IV SCH (22:12)
[2024-02-18] MEDS: FAMOTIDINE (10MG/ML) 2ML VL IV ONE (22:49)
[2024-02-19] VITALS (7 sets, daily range): BP systolic 111–121; BP diastolic 46–66; PULSE 64–83; RESP 12–20; TEMP 97.4–98.2; O2SAT 99–100
[2024-02-19] MEDS ORDERED: MORPHINE SULFATE INJ 2 MG/ml SYRG IV PRN
[2024-02-19] MEDS ORDERED: NITROGLYCERIN 0.4 MG SL TAB SL PRN
[2024-02-19] MEDS: LACTULOSE 20Gm/30ML SOLN PO SCH (00:25)
[2024-02-19 05:42] LABS: Hematocrit 20.5 % (41.0-53.0); Mean Corpuscular Hemoglobin 32.4 pg (28.0-32.0); Mean Corpuscular Hgb Conc. 33.1 g/dL (32.0-36.0); Mean Corpuscular Volume 97.9 fL (80.0-100.0); Red Blood Cells 2.09 10^6/uL (4.5-5.90); Red Cell Distribution Width 18.9 % (11.8-14.3); White Blood Cell 3.4 10^3/uL (4.4-10.8)
[2024-02-19 05:49] LABS: Alanine Aminotransferase 51 U/L (7-40); Albumin 3.1 g/dL (3.2-4.8); Alkaline Phosphatase 141 U/L (46-116); Anion Gap 9 (5-15); Aspartate Aminotransferase 67 U/L (13-40); Calcium 8.7 mg/dL (8.5-10.1); Carbon Dioxide 19 mmol/L (20-30); Chloride 112 mmol/L (98-107); Glucose 96 mg/dL (74-106); Potassium 3.7 mmol/L (3.5-5.1); Sodium 140 mmol/L (136-145)
[2024-02-19 05:50] LABS: BUN/Creatinine Ratio 18.2 (10.0-20.0); Blood Urea Nitrogen 26 mg/dL (9-23)
[2024-02-19 05:52] LABS: Bilirubin, Total 1.6 mg/dL (0.2-1.0); Total Protein 5.5 g/dL (5.7-8.2)
[2024-02-19 05:58] LABS: Hemoglobin 6.8 g/dL (13.5-17.5)
[2024-02-19 05:59] LABS: Basophils % (manual) 0 (0.0-2.0); Blast Cells 0; Metamyelocytes % 0; Myelocytes % 0; Promyelocytes % 0; Reactive Lymphocytes 0
[2024-02-19 08:27] LABS: Band Neutrophils % (manual) 6; Eosinophils % (manual) 13 (0-7); Lymphocytes % (manual) 41 (10.0-50.0); Monocytes % (manual) 1 (0-12)
[2024-02-19 08:28] LABS: Platelet Estimate Decreased
[2024-02-19 09:57] LABS: Urine Bacteria None Seen /hpf (None Seen)
[2024-02-19 10:03] LABS: Urine Blood Negative /uL (Negative); Urine Clarity Clear (Clear); Urine Color Yellow (Yellow); Urine Protein, UAD Negative (Negative); Urine Specific Gravity 1.015 (1.001-1.035); Urine Urobilinogen 6 mg/dL (Negative); Urine WBC <1 /hpf (0 - 3)
[2024-02-19 10:23] LABS: Amphetamine Screen, Urine Neg (NEGATIVE); Barbiturate Scree,Urine Neg (NEGATIVE); Benzodiazephine Screen, Urine Neg (NEGATIVE); Cannabinoid Screen, Urine Neg (NEGATIVE); Cocaine Screen, Urine Neg (NEGATIVE); Opiate Scree,Urine Neg (NEGATIVE); Phencyclidine Screen, Urine Neg (NEGATIVE)
[2024-02-19] MEDS: FAMOTIDINE (10MG/ML) 2ML VL IV SCH (10:31)
[2024-02-19] MEDS: SPIRONOLACTONE 25 MG TAB PO SCH (10:31)
[2024-02-19] MEDS: MULTIPLE VITAMIN TAB PO SCH (10:31)
[2024-02-19] MEDS ORDERED: LACT10SO3 PO (13:41)
[2024-02-19] MEDS: rifAXIMin 550 MG TAB PO SCH (21:15)
[2024-02-19] MEDS: PANTOPRAZOLE 40 MG/10 ML VIAL INJ IV SCH (21:16)
[2024-02-20] VITALS (8 sets, daily range): BP systolic 104–113; BP diastolic 54–63; PULSE 70–91; RESP 16–20; TEMP 97.6–99; O2SAT 97–99
[2024-02-20 05:54] LABS: Basophils # (auto) 0 10 ^3/uL (0-0.2); Eosinophils # (auto) 0.7 10 ^3/uL (0-0.8); Monocytes # (auto) 0.4 10 ^3/uL (0-1.3); Neutrophils # (auto) 1.3 10 ^3/uL (1.6-8.6)
[2024-02-20 05:56] LABS: Basophils % (auto) 0.4 % (0.0-2.0); Eosinophils % (auto) 23.1 % (0.0-7.0); Hematocrit 23.9 % (41.0-53.0); Hemoglobin 8.1 g/dL (13.5-17.5); Lymphocytes # (auto) 0.6 10 ^3/uL (0.4-5.4); Lymphocytes % (auto) 21.4 % (10.0-50.0); Mean Corpuscular Hemoglobin 32.8 pg (28.0-32.0); Mean Corpuscular Hgb Conc. 33.9 g/dL (32.0-36.0); Mean Corpuscular Volume 96.9 fL (80.0-100.0); Monocytes % (auto) 12.3 % (0.0-12.0); Neutrophils % (auto) 42.8 % (37.0-80.0); Nucleated Red Blood Cells % 0.1 %; Red Blood Cells 2.47 10^6/uL (4.5-5.90); Red Cell Distribution Width 17.7 % (11.8-14.3)
[2024-02-20 06:23] LABS: Chloride 111 mmol/L (98-107); Sodium 137 mmol/L (136-145)
[2024-02-20 06:24] LABS: Anion Gap 7 (5-15); Calcium 8.6 mg/dL (8.7-10.4); Carbon Dioxide 19 mmol/L (20-30)
[2024-02-20 06:29] LABS: BUN/Creatinine Ratio 13.7 (10.0-20.0); Blood Urea Nitrogen 16 mg/dL (9-23); Glucose 110 mg/dL (74-106)
[2024-02-21 01:00] VITALS: BP 101/54; PULSE 89; RESP 18; TEMP 98.8; O2SAT 97
[2024-02-21 05:00] VITALS: BP 101/57; PULSE 89; RESP 18; TEMP 98.7; O2SAT 97
[2024-02-21 07:38] LABS: Chloride 112 mmol/L (98-107); Potassium 3.9 mmol/L (3.5-5.1); Sodium 139 mmol/L (136-145)
[2024-02-21 07:39] LABS: Anion Gap 7 (5-15); Carbon Dioxide 20 mmol/L (20-30)
[2024-02-21 07:44] LABS: BUN/Creatinine Ratio 9.6 (10.0-20.0); Blood Urea Nitrogen 11 mg/dL (9-23); Glucose 105 mg/dL (74-106)
[2024-02-21 08:00] VITALS: PULSE 91
[2024-02-21 10:00] VITALS: BP 115/61; PULSE 89; RESP 20; TEMP 98.2; O2SAT 97
[2024-02-21 13:00] VITALS: BP 97/54; PULSE 65; RESP 17; TEMP 98.2; O2SAT 99
[2024-02-21] MEDS ORDERED: RIFA550T PO (14:02)
[2024-02-21] MEDS ORDERED: FERR-7 PO (14:02)
[2024-02-21 17:00] VITALS: BP 123/62; PULSE 87; RESP 20; TEMP 98.3; O2SAT 100
== END 2024-02-21 18:00 | disposition home or self-care (01) ==
LOC: ER 16:54 → TELE 23:51 → TELE-WESTW 02-19 15:55
PROVIDERS: ADMIT Nurse Practitioner Family; ATTEND Nurse Practitioner Acute Care
PROC: 30233N1 Transfusion of Nonautologous Red Blood Cells into Peripheral Vein, Percutaneous Approach (ICD-10-PCS; principal; 2024-02-19)
DX: K76.82 Hepatic encephalopathy (principal); G93.41 Metabolic encephalopathy; D61.818 Other pancytopenia; R18.8 Other ascites; K92.2 Gastrointestinal hemorrhage, unspecified; K74.60 Unspecified cirrhosis of liver; N28.9 Disorder of kidney and ureter, unspecified; I10 Essential (primary) hypertension; D64.9 Anemia, unspecified; E80.6 Other disorders of bilirubin metabolism
CPT/HCPCS: 36415; 70450; 80048; 80053; 80307; 80320; 80329; 81001; 82140; 82962; 83690; 83735; 84484; 85007; 85025; 85027; 85610; 85730; 86850; 86900; 86901; 86920; 93005; 96374; 99291; C9113; G0378; J3490

== ENCOUNTER 2024-04-10 11:07 | Inpatient (IN) | payer OTHER ==
[~2024-04-10] VITALS: Ht 167.6 cm; Wt 70.0 kg
[~2024-04-10 11:07] MED LIST changes: +FERR-7 PO; -FERR325T24 PO; +LACT10SO3 PO; +PENI500T2 PO; +RIFA550T PO
[2024-04-10 12:34] LABS: Hemoglobin 7.7 g/dL (13.5-17.5)
[2024-04-10 12:37] LABS: Hematocrit 22.5 % (41.0-53.0); Mean Corpuscular Hemoglobin 35.2 pg (28.0-32.0); Mean Corpuscular Hgb Conc. 34.1 g/dL (32.0-36.0); Red Blood Cells 2.18 10^6/uL (4.5-5.90); White Blood Cell 2.9 10^3/uL (4.4-10.8)
[2024-04-10 12:41] LABS: Red Cell Distribution Width 20.2 % (11.8-14.3)
[2024-04-10 12:48] LABS: Alanine Aminotransferase 33 U/L (7-40); Albumin 3.4 g/dL (3.2-4.8); Alkaline Phosphatase 166 U/L (46-116); Anion Gap 8 (5-15); Aspartate Aminotransferase 53 U/L (13-40); BUN/Creatinine Ratio 9.8 (10.0-20.0); Bilirubin, Total 1.9 mg/dL (0.2-1.0); Blood Urea Nitrogen 10 mg/dL (9-23); CRP High Sensitivity 0.05 mg/dL (<1.0); Carbon Dioxide 22 mmol/L (20-30); Chloride 111 mmol/L (98-107); Glucose 105 mg/dL (74-106); Potassium 3.8 mmol/L (3.5-5.1); Sodium 141 mmol/L (136-145)
[2024-04-10 12:52] LABS: Basophils % (manual) 0 (0.0-2.0); Blast Cells 0; Metamyelocytes % 0; Myelocytes % 0; Promyelocytes % 0; Reactive Lymphocytes 0
[2024-04-10 13:41] LABS: Band Neutrophils % (manual) 2; Eosinophils % (manual) 22 (0-7); Lymphocytes % (manual) 23 (10.0-50.0); Monocytes % (manual) 10 (0-12)
[2024-04-10 13:42] LABS: Anisocytosis Slight; Macrocytosis Slight; Platelet Estimate Decreased
[2024-04-10 14:05] LABS: Erythrocyte Sedimentation Rate 36 mm/hr (0-20)
[2024-04-10] MEDS ORDERED: ONDANSETRON HCL 4 MG/2 ML VIAL IV PRN (14:45)
[2024-04-10 17:33] VITALS: PULSE 94; RESP 18; O2SAT 96
[2024-04-10] MEDS: FUROSEMIDE 40 MG/4 ML VIAL IV ONE (18:05)
[2024-04-10 22:00] VITALS: PULSE 68; RESP 20; O2SAT 96
[2024-04-10] MEDS: LACTULOSE 20Gm/30ML SOLN PO SCH (23:38)
[2024-04-10] MEDS: rifAXIMin 550 MG TAB PO SCH (23:41)
[2024-04-10] MEDS: PROPRANOLOL HCL 20 MG TAB PO SCH (23:41)
[2024-04-11 01:00] VITALS: BP_SYST 111; BP_SYST 96; BP_DIAS 51; BP_DIAS 60; PULSE 65; PULSE 71; RESP 18; TEMP 97.8; TEMP 98.2; O2SAT 97; O2SAT 99
[2024-04-11 05:00] VITALS: BP 96/51; PULSE 71; RESP 18; TEMP 97.8; O2SAT 97
[2024-04-11 07:10] LABS: Hemoglobin 7.2 g/dL (13.5-17.5); White Blood Cell 2.6 10^3/uL (4.4-10.8)
[2024-04-11 07:12] LABS: Hematocrit 21.3 % (41.0-53.0); Mean Corpuscular Hemoglobin 34.3 pg (28.0-32.0); Mean Corpuscular Hgb Conc. 33.8 g/dL (32.0-36.0); Mean Corpuscular Volume 101.5 fL (80.0-100.0); Red Cell Distribution Width 19.9 % (11.8-14.3)
[2024-04-11 07:20] LABS: Basophils % (manual) 0 (0.0-2.0); Blast Cells 0; Metamyelocytes % 0; Myelocytes % 0; Promyelocytes % 0; Reactive Lymphocytes 0
[2024-04-11 07:29] LABS: Alanine Aminotransferase 29 U/L (7-40); Alkaline Phosphatase 150 U/L (46-116); Anion Gap 8 (5-15); Calcium 8.6 mg/dL (8.5-10.1); Carbon Dioxide 22 mmol/L (20-30); Chloride 110 mmol/L (98-107); Glucose 100 mg/dL (74-106); Potassium 3.5 mmol/L (3.5-5.1); Sodium 140 mmol/L (136-145)
[2024-04-11 07:30] LABS: Aspartate Aminotransferase 46 U/L (13-40); BUN/Creatinine Ratio 12.4 (10.0-20.0); Blood Urea Nitrogen 14 mg/dL (9-23)
[2024-04-11 07:32] LABS: Albumin 3.1 g/dL (3.2-4.8); Bilirubin, Total 1.8 mg/dL (0.2-1.0); Total Protein 5.4 g/dL (5.7-8.2)
[2024-04-11 08:00] VITALS: BP 95/54; PULSE 65; RESP 16; TEMP 98.1; O2SAT 100
[2024-04-11 08:34] LABS: Band Neutrophils % (manual) 2; Eosinophils % (manual) 17 (0-7); Lymphocytes % (manual) 23 (10.0-50.0); Macrocytosis Slight; Monocytes % (manual) 2 (0-12); Platelet Estimate Decreased
[2024-04-11] MEDS: PANTOPRAZOLE 40 MG TAB PO SCH (09:22)
[2024-04-11] MEDS: FERROUS SULFATE 325mg EC TAB PO SCH (09:22)
[2024-04-11] MEDS: MULTIPLE VITAMIN TAB PO SCH (09:22)
[2024-04-11] MEDS: SPIRONOLACTONE 25 MG TAB PO SCH (09:23)
[2024-04-11] MEDS: FUROSEMIDE 20 MG TAB PO SCH (09:24)
[2024-04-11] MEDS ORDERED: FUROSEMIDE 20 MG/2 ML VIAL IV SCH (10:00)
[2024-04-11 12:00] VITALS: BP 99/53; PULSE 64; RESP 16; TEMP 98.1; O2SAT 97
[2024-04-11] MEDS ORDERED: FURO20TA3 PO (13:08)
[2024-04-11] MEDS ORDERED: LACT10SO3 PO (13:08)
[2024-04-11 16:00] VITALS: BP 99/51; PULSE 69; RESP 16; TEMP 98.1; O2SAT 96
[2024-04-11 20:00] VITALS: RESP 16
[2024-04-12] VITALS (7 sets, daily range): BP systolic 92–105; BP diastolic 48–54; PULSE 65–75; RESP 16–18; TEMP 36.7; O2SAT 95–100
[2024-04-12 06:57] LABS: Chloride 109 mmol/L (98-107); Potassium 3.8 mmol/L (3.5-5.1); Sodium 139 mmol/L (136-145)
[2024-04-12 06:58] LABS: Anion Gap 8 (5-15); Carbon Dioxide 22 mmol/L (20-30)
[2024-04-12 06:59] LABS: Calcium 8.6 mg/dL (8.5-10.1)
[2024-04-12 07:00] LABS: Basophils # (auto) 0 10 ^3/uL (0-0.2); Hemoglobin 7.5 g/dL (13.5-17.5); Lymphocytes # (auto) 0.7 10 ^3/uL (0.4-5.4); Monocytes # (auto) 0.2 10 ^3/uL (0-1.3); White Blood Cell 2.5 10^3/uL (4.4-10.8)
[2024-04-12 07:01] LABS: Folate (Folic Acid) 18.19 ng/mL (>5.38)
[2024-04-12 07:03] LABS: BUN/Creatinine Ratio 12.5 (10.0-20.0); Blood Urea Nitrogen 15 mg/dL (9-23); Glucose 106 mg/dL (74-106)
[2024-04-12 07:05] LABS: INR 1.35 (0.9-1.15); Partial Thromboplastin Time 30.7 SEC (24.5-34.5)
[2024-04-12 07:06] LABS: Basophils % (auto) 0.5 % (0.0-2.0); Eosinophils # (auto) 0.4 10 ^3/uL (0-0.8); Hematocrit 21.9 % (41.0-53.0); Lymphocytes % (auto) 26.2 % (10.0-50.0); Mean Corpuscular Hemoglobin 34.6 pg (28.0-32.0); Mean Corpuscular Hgb Conc. 34.2 g/dL (32.0-36.0); Mean Corpuscular Volume 101.2 fL (80.0-100.0); Monocytes % (auto) 8.8 % (0.0-12.0); Neutrophils # (auto) 1.2 10 ^3/uL (1.6-8.6); Neutrophils % (auto) 46.7 % (37.0-80.0); Red Blood Cells 2.17 10^6/uL (4.5-5.90); Red Cell Distribution Width 19.8 % (11.8-14.3)
[2024-04-12 07:07] LABS: Magnesium 1.4 mg/dL (1.6-2.6)
[2024-04-12 07:35] LABS: Eosinophils % (auto) 17.8 % (0.0-7.0)
[2024-04-12] MEDS ORDERED: FUROSEMIDE 20 MG TAB PO SCH (10:00)
[2024-04-12] MEDS ORDERED: FUR20T PO (10:15)
[2024-04-12] MEDS ORDERED: SPIR25TA PO (10:15)
[2024-04-12] MEDS: SPIRONOLACTONE 25 MG TAB PO SCH (10:20)
[2024-04-12] MEDS: MAGNESIUM SULFATE 1GM/100ML 100 ML IV ONE (14:15)
== END 2024-04-12 17:48 | disposition home or self-care (01) | DRG 280 ==
LOC: ER 11:07 → OVERFLOW 14:51 → CENTRAL 22:20
PROVIDERS: ADMIT Internal Medicine Geriatric Medicine; ATTEND Emergency Medicine
DX: K70.30 Alcoholic cirrhosis of liver without ascites (principal); D61.818 Other pancytopenia; K76.82 Hepatic encephalopathy; R16.2 Hepatomegaly with splenomegaly, not elsewhere classified; I10 Essential (primary) hypertension; F10.10 Alcohol abuse, uncomplicated; R74.01 Elevation of levels of liver transaminase levels; K57.30 Diverticulosis of large intestine without perforation or abscess without bleeding; Z79.899 Other long term (current) drug therapy
CPT/HCPCS: 36415; 74176; 80048; 80053; 82140; 82607; 82746; 83605; 83735; 83880; 84484; 85007; 85025; 85027; 85610; 85652; 85730; 86141; 93970; G0378